=== PATIENT | male | born 1955 | race Caucasian/White ===

== ENCOUNTER 2021-02-26 19:41 | Emergency (ER) | payer MEDICARE, OTHER ==
[~2021-02-26] VITALS: Ht 165.1 cm; Wt 95.2 kg
[~2021-02-26 19:41] MED LIST: LOSA25 PO
== END 2021-02-26 22:06 | disposition home or self-care (01) ==
LOC: ER 19:41
DX: S61.211A Laceration without foreign body of left index finger without damage to nail, initial encounter (principal); Z87.891 Personal history of nicotine dependence; W26.0XXA Contact with knife, initial encounter
CPT/HCPCS: 12001; 99282-25

== ENCOUNTER 2021-03-17 10:49 | Day surgery (SDC) | payer MEDICARE, OTHER ==
[~2021-03-17] VITALS: Ht 165.1 cm; Wt 96.9 kg
[2021-03-17] MEDS ORDERED: LORA10ER (11:12)
[2021-03-17] MEDS ORDERED: ASPIR 8181 M1 (11:12)
== END 2021-03-17 13:45 | disposition home or self-care (01) ==
LOC: ORSCSDS 10:49
PROVIDERS: Internal Medicine Gastroenterology
PROC: 0DBM8ZX Excision of Descending Colon, Via Natural or Artificial Opening Endoscopic, Diagnostic (ICD-10-PCS; principal; 2021-03-17 12:00)
PROC: 0DBL8ZX Excision of Transverse Colon, Via Natural or Artificial Opening Endoscopic, Diagnostic (ICD-10-PCS; principal; 2021-03-17 12:00)
DX: Z12.11 Encounter for screening for malignant neoplasm of colon (principal); Z80.0 Family history of malignant neoplasm of digestive organs; Z86.010 Personal history of colon polyps; K57.30 Diverticulosis of large intestine without perforation or abscess without bleeding; K64.8 Other hemorrhoids; I10 Essential (primary) hypertension; G47.33 Obstructive sleep apnea (adult) (pediatric); E66.9 Obesity, unspecified; Z68.35 Body mass index [BMI] 35.0-35.9, adult; J45.909 Unspecified asthma, uncomplicated; Z79.899 Other long term (current) drug therapy; Z79.82 Long term (current) use of aspirin
CPT/HCPCS: 88305; J2405; J2704; J7120

== ENCOUNTER 2024-07-03 10:00 | Day surgery (SDC) | payer MEDICARE, OTHER ==
[~2024-07-03] VITALS: Ht 165.1 cm; Wt 98.4 kg
[~2024-07-03 10:00] MED LIST changes: +ASPIR 8181 M1; +LORA10ER; +Lactated Ringer's 1,000 ML IV ONE
[2024-07-03] MEDS ORDERED: Lactated Ringer's 1,000 ML IV ONE (11:08)
[2024-07-03] MEDS ORDERED: propofoL 50 ML IV ONE (11:25)
[2024-07-03 12:28] VITALS: BP 118/87
== END 2024-07-03 12:25 | disposition home or self-care (01) ==
LOC: ORSCSDS 10:00
PROVIDERS: Internal Medicine Gastroenterology
PROC: 0DBL8ZX Excision of Transverse Colon, Via Natural or Artificial Opening Endoscopic, Diagnostic (ICD-10-PCS; principal; 2024-07-03 11:30)
PROC: 0DBK8ZX Excision of Ascending Colon, Via Natural or Artificial Opening Endoscopic, Diagnostic (ICD-10-PCS; principal; 2024-07-03 11:30)
DX: Z12.11 Encounter for screening for malignant neoplasm of colon (principal); Z86.0101 Personal history of adenomatous and serrated colon polyps; D12.2 Benign neoplasm of ascending colon; K63.5 Polyp of colon; K64.8 Other hemorrhoids; K57.30 Diverticulosis of large intestine without perforation or abscess without bleeding; I10 Essential (primary) hypertension; E66.9 Obesity, unspecified; Z68.33 Body mass index [BMI] 33.0-33.9, adult; Z79.82 Long term (current) use of aspirin; Z79.899 Other long term (current) drug therapy
CPT/HCPCS: 88305; J2704; J7120